=== PATIENT | female | born 1970 | race Caucasian/White ===

== ENCOUNTER 2021-08-11 16:09 | Outpatient (CLI) | payer SELFPAY ==
[2021-08-13 15:01] LABS: Zinc 84 mcg/dL (60-130)
[2021-08-15 06:37] LABS: Vitamin B1 12 nmol/L (8-30)
== END 2021-08-11 16:10 | disposition home or self-care (01) ==
PROVIDERS: PCP Internal Medicine; Visit Provider Physician Assistant
DX: Z00.00 Encounter for general adult medical examination without abnormal findings (principal); R43.0 Anosmia
CPT/HCPCS: 36415; 82525; 84425; 84630